=== PATIENT | male | born 2000 | race Caucasian/White ===

== ENCOUNTER 2020-01-25 09:26 | Emergency (ER) | payer BC ==
[2020-01-25] MEDS ORDERED: Sodium Chloride 0.9% 10 ML Syringe FLUSH PRN ×2 (10:42→11:40)
[2020-01-25] MEDS ORDERED: Sodium Chloride 0.9% 1,000 ML IV STA (10:44)
[2020-01-25] MEDS ORDERED: Ondansetron 4 MG/2 ML SDV IVPUSH ONE (10:44)
[2020-01-25] MEDS ORDERED: HYDROmorphone 0.5 MG/0.5 ML Syringe IVPUSH ONE ×2 (10:44→15:30)
[2020-01-25] MEDS ORDERED: Ketorolac 30 MG/ML SDV IVPUSH ONE (10:44)
--- NOTE | 2020-01-25 11:15 | EDM.PDOC ---
ED HPI GENERAL MEDICAL PROBLEM - General Chief Complaint: Genitourinary Problem Stated Complaint: BLOOD IN URINE,ABDOMINAL PAIN Time Seen by Provider: 01/25/20 10:42 Source of Information: Reports: Patient History Limitations: Reports: No Limitations - History of Present Illness INITIAL COMMENTS - FREE TEXT/NARRATIVE: Patient is a 19-year-old male presenting to the emergency department with complaints of intense suprapubic pain. He states the symptoms began a few days ago. He was seen at the [facility] 2 days ago diagnosed with a urinary tract infection and started on Keflex. He states the suprapubic pain is getting worse. On my exam, he was curled up in the position on the bed. Patient does have a history of polycystic kidneys but denies a history of urinary tract infection. He is he was sexually active with his last sexual encounter being 3 weeks ago. He does not think that they checked him for sexually transmitted diseases at the walk-in clinic. He denies any fever, chills, or diarrhea. He did have one episode of vomiting this morning. Vital signs on triage were stable. Temperature 97.6, pulse 62, respiratory rate 20, blood pressure 150/95, oxygen saturation 100% on room air. Lower Abdomen Pain Score (Numeric/FACES): 10 - Related Data Allergies Allergy/AdvReac Type Severity Reaction Status Date / Time No Known Allergies Allergy Verified 01/25/20 09:44 Home Meds: Home Meds Acetaminophen/HYDROcodone [Mesa 325-5 MG] 1 tab PO Q4H PRN #10 tablet 01/25/20 [Rx] Ondansetron [Zofran ODT] 4 mg PO Q6H PRN #10 tab.dis 01/25/20 [Rx] Tamsulosin [Tamsulosin 24 Hr] 0.4 mg PO DAILY #30 cap.er 01/25/20 [Rx] cephALEXin [Cephalexin] 500 mg PO BID 01/25/20 [History] Past Medical History Genitourinary History: Reports: Other (See Below) Other Genitourinary History: polycystic kidney disease - Past Surgical History HEENT Surgical History: Reports: Other (See Below) Other HEENT Surgeries/Procedures: ear surgery as a child Social & Family History - Family History Family Medical History: Noncontributory - Tobacco Use Smoking Status *Q: Never Smoker Second Hand Smoke Exposure: No - Caffeine Use Caffeine Use: Reports: None - Recreational Drug Use Recreational Drug Use: No ED ROS GENERAL - Review of Systems Review Of Systems: See Below Constitutional: Reports: No Symptoms. Denies: Fever, Chills Respiratory: Reports: No Symptoms Cardiovascular: Reports: No Symptoms Endocrine: Reports: No Symptoms GI/Abdominal: Reports: Abdominal Pain (suprapubic), Nausea, Vomiting. Denies: Diarrhea : Reports: Hematuria. Denies: Flank Pain, Frequency Musculoskeletal: Reports: No Symptoms. Denies: Back Pain Skin: Reports: No Symptoms Neurological: Reports: No Symptoms Psychiatric: Reports: No Symptoms Hematologic/Lymphatic: Reports: No Symptoms Immunologic: Reports: No Symptoms ED EXAM, RENAL/ - Physical Exam Exam: See Below General Appearance: Alert, Moderate Distress Respiratory/Chest: No Respiratory Distress, Lungs Clear, Normal Breath Sounds, No Accessory Muscle Use, Chest Non-Tender Cardiovascular: Normal Peripheral Pulses, Regular Rate, Rhythm, No Edema, No Gallop, No JVD, No Murmur, No Rub GI/Abdominal: Normal Bowel Sounds, Soft, No Organomegaly, No Distention, No Abnormal Bruit, No Mass, Tender (suprapubic) Back Exam: Normal Inspection, Full Range of Motion. No: CVA Tenderness (L), CVA Tenderness (R) Neurological: Alert, Oriented, CN II-XII Intact, Normal Cognition, Normal Gait, Normal Reflexes, No Motor/Sensory Deficits Psychiatric: Normal Affect, Normal Mood Skin Exam: Warm, Dry, Intact, Normal Color, No Rash EKG INTERPRETATION EKG Date: 01/26/20 Time: 15:43 Rhythm: NSR Rate (Beats/Min): 47 Holden: Normal P-Wave: Present QRS: Normal ST-T: Normal QT: Normal EKG Interpretation Comments: Sinus bradycardia at 47 bpm Left ventricular hypertrophy pattern R SR V2 with ST elevation Diffuse early repolarization pattern EKG interpreted by Dr. Kelli MD. Course - Vital Signs Last Recorded V/S: Last Vital Signs Temp 97.6 F 01/25/20 09:39 Pulse 62 01/25/20 09:39 Resp 20 01/25/20 09:39 BP 150/95 H 01/25/20 09:39 Pulse Ox 100 01/25/20 09:39 - Orders/Labs/Meds Labs: Laboratory Tests 01/25/20 01/25/2001/24/20 Range/Units 11:00 11:00 11:00 WBC 7.63 (4.23-9.07) K/mm3 RBC 5.27 (4.63-6.08) M/mm3 Hgb 15.2 (13.7-17.5) gm/dl Hct 45.6 (40.1-51.0) % MCV 86.5 (79.0-92.2) fl MCH 28.8 (25.7-32.2) pg MCHC 33.3 (32.2-35.5) g/dl RDW Std Deviation 43.4 (35.1-43.9) fL Plt Count 260 (163-337) K/mm3 MPV 10.6 (9.4-12.3) fl Neut % (Auto) 79.3 H (34.0-67.9) % Lymph % (Auto) 13.8 L (21.8-53.1) % Prentiss % (Auto) 6.2 (5.3-12.2) % Eos % (Auto) 0.5 L (0.8-7.0) Baso % (Auto) 0.1 (0.1-1.2) % Neut # (Auto) 6.05 H (1.78-5.38) K/mm3 Lymph # (Auto) 1.05 L (1.32-3.57) K/mm3 Prentiss # (Auto) 0.47 (0.30-0.82) K/mm3 Eos # (Auto) 0.04 (0.04-0.54) K/mm3 Baso # (Auto) 0.01 (0.01-0.08) K/mm3 Sodium 142 (136-145) mEq/L Potassium 3.8 (3.5-5.1) mEq/L Chloride 105 (98-107) mEq/L Carbon Dioxide 26 (21-32) mEq/L Anion Gap 14.8 (5-15) BUN 23 H (7-18) mg/dL Creatinine 0.9 (0.7-1.3) mg/dL Est Cr Clr Drug Dosing 151.20 mL/min Estimated GFR (MDRD) > 60 (>60) mL/min BUN/Creatinine Ratio 25.6 H (14-18) Glucose 120 H (74-106) mg/dL Calcium 9.3 (8.5-10.1) mg/dL Total Bilirubin 0.5 (0.2-1.0) mg/dL AST 46 H (15-37) U/L ALT 57 (16-63) U/L Alkaline Phosphatase 68 (46-116) U/L C-Reactive Protein <0.2 (<1.0) mg/dL Total Protein 7.6 (6.4-8.2) g/dl Albumin 4.5 (3.4-5.0) g/dl Globulin 3.1 gm/dL Albumin/Globulin Ratio 1.5 (1-2) Urine Color Yellow (Yellow) Urine Appearance Clear (Clear) Urine pH 8.0 (5.0-8.0) Ur Specific [place] 1.025 (1.005-1.030) Urine Protein Trace H (Negative) Urine Glucose (UA) Negative (Negative) Urine Ketones Negative (Negative) Urine Occult Blood 3+ H (Negative) Urine Nitrite Negative (Negative) Urine Bilirubin Negative (Negative) Urine Urobilinogen 0.2 (0.2-1.0) Ur Leukocyte Esterase Negative (Negative) Urine RBC 40-50 H (0-5) /hpf Urine WBC 0-5 (0-5) /hpf Ur Epithelial Cells 0-5 (0-5) /hpf Urine Bacteria Few (FEW) /hpf Urine Mucus Few (FEW) /hpf SARS CoV-2 RNA Rapid FIDEL (NEGATIVE) 01/25/20 Range/Units 15:53 WBC (4.23-9.07) K/mm3 RBC (4.63-6.08) M/mm3 Hgb (13.7-17.5) gm/dl Hct (40.1-51.0) % MCV (79.0-92.2) fl MCH (25.7-32.2) pg MCHC (32.2-35.5) g/dl RDW Std Deviation (35.1-43.9) fL Plt Count (163-337) K/mm3 MPV (9.4-12.3) fl Neut % (Auto) (34.0-67.9) % Lymph % (Auto) (21.8-53.1) % Prentiss % (Auto) (5.3-12.2) % Eos % (Auto) (0.8-7.0) Baso % (Auto) (0.1-1.2) % Neut # (Auto) (1.78-5.38) K/mm3 Lymph # (Auto) (1.32-3.57) K/mm3 Prentiss # (Auto) (0.30-0.82) K/mm3 Eos # (Auto) (0.04-0.54) K/mm3 Baso # (Auto) (0.01-0.08) K/mm3 Sodium (136-145) mEq/L Potassium (3.5-5.1) mEq/L Chloride (98-107) mEq/L Carbon Dioxide (21-32) mEq/L Anion Gap (5-15) BUN (7-18) mg/dL Creatinine (0.7-1.3) mg/dL Est Cr Clr Drug Dosing mL/min Estimated GFR (MDRD) (>60) mL/min BUN/Creatinine Ratio (14-18) Glucose (74-106) mg/dL Calcium (8.5-10.1) mg/dL Total Bilirubin (0.2-1.0) mg/dL AST (15-37) U/L ALT (16-63) U/L Alkaline Phosphatase (46-116) U/L C-Reactive Protein (<1.0) mg/dL Total Protein (6.4-8.2) g/dl Albumin (3.4-5.0) g/dl Globulin gm/dL Albumin/Globulin Ratio (1-2) Urine Color (Yellow) Urine Appearance (Clear) Urine pH (5.0-8.0) Ur Specific [place] (1.005-1.030) Urine Protein (Negative) Urine Glucose (UA) (Negative) Urine Ketones (Negative) Urine Occult Blood (Negative) Urine Nitrite (Negative) Urine Bilirubin (Negative) Urine Urobilinogen (0.2-1.0) Ur Leukocyte Esterase (Negative) Urine RBC (0-5) /hpf Urine WBC (0-5) /hpf Ur Epithelial Cells (0-5) /hpf Urine Bacteria (FEW) /hpf Urine Mucus (FEW) /hpf SARS CoV-2 RNA Rapid FIDEL Negative (NEGATIVE) Meds: Medications Discontinued Medications Generic Name Dose Route Start Last Admin Trade Name Freq PRN Reason Stop Dose Admin Hydrocodone Bitart/Acetaminophen 1 tab 01/25/20 15:31 01/25/20 15:51 Mesa 325-5 Mg PO 01/25/20 15:32 1 tab ONETIME ONE Administration Hydromorphone HCl 0.5 mg 01/25/20 10:44 01/25/20 11:00 Dilaudid IVPUSH 01/25/20 10:45 0.5 mg ONETIME ONE Administration Hydromorphone HCl 0.5 mg 01/25/20 15:30 01/25/20 15:52 Dilaudid IVPUSH 01/25/20 15:31 0.5 mg ONETIME ONE Administration Sodium Chloride 1,000 mls @ 999 mls/hr 01/25/20 10:44 01/25/20 11:00 Normal Saline IV 01/25/20 11:44 999 mls/hr NOW STA Administration Iopamidol 100 ml 01/25/20 11:40 01/25/20 12:49 Isovue-300 (61%) IVPUSH 01/25/20 11:41 100 ml ONETIME ONE Administration Ketorolac Tromethamine 30 mg 01/25/20 10:44 01/25/20 11:00 Toradol IVPUSH 01/25/20 10:45 30 mg ONETIME ONE Administration Ondansetron HCl 4 mg 01/25/20 10:44 01/25/20 11:00 Zofran IVPUSH 01/25/20 10:45 4 mg ONETIME ONE Administration Sodium Chloride 10 ml 01/25/20 10:42 01/25/20 11:00 Saline Flush FLUSH 10 ml ASDIRECTED PRN Administration Keep Vein Open Sodium Chloride 10 ml 01/25/20 11:40 01/25/20 12:49 Saline Flush FLUSH 10 ml ONETIME PRN Administration IV FLUSH Tamsulosin HCl 0.4 mg 01/25/20 15:36 01/25/20 15:51 Flomax PO 01/25/20 15:37 0.4 mg ONETIME ONE Administration - Re-Assessments/Exams Free Text/Narrative Re-Assessment/Exam: Patient is a 19-year-old male presenting to the emergency department with complaints of intense suprapubic pain. He was seen at [facility] yesterday and diagnosed with a urinary tract infection. Started on cephalexin, however he states the pain is worsening. He denies a history of kidney stones but does have a history of polycystic kidneys. He had one episode of vomiting this morning, however feels it may be attributed to the pain. Denies any fever or chills. I have ordered a CBC, CMP, CRP, urinalysis. We will contact [facility] to get information regarding his visit. 01/25/20 1215 Patient is feeling much better after the medications given. Hematology was carlos sly unremarkable. Urinalysis showed 3+ occult blood and 40-50 RBCs. Records reviewed from [facility] show that 2 days ago he did have 3+ occult blood, 3+ leukocyte esterase, 0-5 WBCs, greater than 30 RBCs, as well as many bacteria. [facility] verbalizes they have no growth on his urine culture after 48 hours. I have ordered a CT scan of his abdomen pelvis with IV contrast only due to his history of polycystic kidneys as well as his significant discomfort upon arrival. 01/25/20 15:32 CT scan of the abdomen pelvis shows a 6 mm obstructing stone within the proximal left ureter. Numerous cysts within both kidneys. Delayed images show contrast in the right ureter and within the bladder. Mild increased stool in the colon. To urologist, Dr. Patel at [facility] and [facility] in [place]. Although there is currently no signs of infection in his urine, since he did have infection in his urine 2 days ago, he needs to have a stent placed. Dr. Patel was able to arrange to have surgery tomorrow morning. I will give him a dose of Flomax and Mesa before he leaves today. We will discharge the patient home with a prescription for Mesa. Nurse from Dr. Villanueva office will contact him later this evening to let him know what time to arrive in [place]. Discharge instructions as documented. Departure - Departure Time of Disposition: 15:37 Disposition: Home, Self-Care 01 Condition: Good Clinical Impression: Kidney stone - Discharge Information *PRESCRIPTION DRUG MONITORING PROGRAM REVIEWED*: No *COPY OF PRESCRIPTION DRUG MONITORING REPORT IN PATIENT MARY: No Prescriptions: Tamsulosin [Tamsulosin 24 Hr] 0.4 mg PO DAILY #30 cap.er Acetaminophen/HYDROcodone [Mesa 325-5 MG] 1 tab PO Q4H PRN #10 tablet PRN Reason: Pain Ondansetron [Zofran ODT] 4 mg PO Q6H PRN #10 tab.dis PRN Reason: Nausea/Vomiting Instructions: Kidney Stones, [id number] Referrals: Keny Patel MD [Ordering Only Provider] - Forms: ED Department Discharge Additional Instructions: You were seen in the emergency department today for significant suprapubic discomfort after being diagnosed with urinary tract infection [address] scan was done of your abdomen pelvis and do show that you have a 6 mm obstructing stone within the proximal left ureter. Since he did have a urinary tract infection along with a stone, this is it is urgent that you have a stent placed in your ureter. Arrangements have been made for you to have surgery tomorrow morning with Dr. Patel in [place]. A prescription has been sent for hydrocodone with Tylenol for pain as well as Flomax which is will help to facilitate passage of the stone. Take these medications as prescribed. You may also take Tylenol 650 mg every 4-6 hours in addition to these medications. You should continue your antibiotic previously prescribed to you. You are to have nothing to eat or drink after midnight except you may take Tylenol or hydrocodone with just a sip of water. You are to arrive to the [facility] of [facility] in [place] tomorrow morning. Someone will call you this evening to let you know what time to arrive. If you have questions, you may call them also at [phone]. If you should develop a fever or chills during the night, you should go to the emergency department at [facility] in [place]. Sepsis Event Note (ED) - Evaluation Sepsis Screening Result: No Definite Risk
[2020-01-25] MEDS ORDERED: Iopamidol 612 MG/ML 100 ML Bottle IVPUSH ONE (11:40)
[2020-01-25] MEDS ORDERED: Acetaminophen/HYDROcodone 325-5 MG Tab PO ONE (15:31)
[2020-01-25] MEDS ORDERED: Tamsulosin 0.4 MG Cap.ER PO ONE (15:36)
--- NOTE | 2020-01-26 09:05 | CT ---
CT abdomen and pelvis Technique: Multiple axial sections were obtained from above the dome of the diaphragm inferiorly through the pubic symphysis. 5 minute delayed images. 40 seconds images were obtained from above the kidneys and iliac crests. Reconstructed coronal and sagittal images were obtained. Comparison: No previous abdominal imaging is available. Findings: Visualized lung bases show nothing acute. Liver contains no focal parenchymal abnormality. Spleen appears within normal limits. Adrenal glands show no nodule. Pancreas shows no abnormality. Numerous cysts are seen within both kidneys. Delayed images shows contrast within the right ureter with contrast being seen within the bladder. There is a stone being seen within the proximal left ureter measuring 6 mm. Delayed images shows no contrast excretion into the left ureter. No additional ureteral calculi are seen. Appendix is not definitely visualized. Mild increased stool is seen within colon. No inflammatory change is seen. Bone window settings were reviewed which show no acute osseous finding. Impression: 1. 6 mm obstructing stone within proximal left ureter. 2. Numerous cysts within both kidneys. 3. Delayed images shows contrast within the right ureter and within the bladder. 4. Mild increased stool within the colon. Diagnostic code #3 Study was dictated in MDT MTDD
== END 2020-01-25 16:32 | disposition home or self-care (01) ==
LOC: JD.ED 09:26
DX: N20.2 Calculus of kidney with calculus of ureter (principal); Z20.828 Contact with and (suspected) exposure to other viral communicable diseases
CPT/HCPCS: 36415; 74177; 80053; 81001; 85025; 86140; 87635; 93005; 96361; 96374; 96375; 96376; 99284; A9270; J1170; J1885; J2405; J7030; Q9967; 93010; 99283; U0002